=== PATIENT | female | born 1955 | race African-American/Black ===

== ENCOUNTER → 2020-11-24 | Outpatient (CLI) | payer OTHER, MEDICARE | LOC: SJCVCIMAG 09:53 → SJCVC 09:53 | PROVIDERS: ATTEND Internal Medicine | DX: R94.31 Abnormal electrocardiogram [ECG] [EKG] (principal); I08.8 Other rheumatic multiple valve diseases; R53.83 Other fatigue; I10 Essential (primary) hypertension; K21.9 Gastro-esophageal reflux disease without esophagitis; Z13.220 Encounter for screening for lipoid disorders; Z88.8 Allergy status to other drugs, medicaments and biological substances; Z79.899 Other long term (current) drug therapy ==